=== PATIENT | female | born 1985 | race Caucasian/White ===

== ENCOUNTER → 2024-07-23 13:49 | Outpatient (REF) | payer OTHER, SELFPAY | LOC: HWRAD 13:49 | PROVIDERS: ATTENDING PHYSICIAN Nurse Practitioner Family | DX: R10.2 Pelvic and perineal pain (principal); N93.9 Abnormal uterine and vaginal bleeding, unspecified | CPT/HCPCS: 76830; 76856 ==

== ENCOUNTER 2024-07-27 20:38 | Emergency (ER) | payer OTHER, SELFPAY ==
[2024-07-27 20:40] VITALS: BP 115/78
[2024-07-27 21:05] LABS: COVID-19 Antigen Negative (Negative)
--- NOTE | 2024-07-27 21:57 | ED.GENMED ---
History of Present Illness
General
Chief Complaint: Cold/Flu/URI Symptoms
Source: patient
Time Seen by Provider: 07/27/24 21:21
History of Present Illness
History of Present Illness:
39yoF with no significant past medical history presenting with her mother for evaluation of flu-like symptoms x 3 days. Symptoms include fevers, body aches, headaches, dry cough, and fatigue. Tmax 103. Patient's son was recently sick with
adenovirus. She has been taking Tylenol and ibuprofen for her symptoms. She denies any vomiting, diarrhea, abdominal pain, dysuria, rashes. No recent travel.
Past History
Past History
ED Past Medical History: None
ED Past Surgical History:
Social History
Tobacco: Non-smoker
Personal:
Phy Exam
General Physical Exam
General Presentation: well appearing and no apparent distress
General age: appears stated age
General Skin: warm and dry
General Habitus: normal
General Mental: alert
ENT Exam
ENT Exam: TM's normal, pharynx normal, neck supple and normocephalic
Additional ENT: No meningismus
Cardiovascular Exam
Cardiovascular Exam: regular rate/rhythm and no murmur
Pulmonary Exam
Pulmonary Exam: lungs clear, no respiratory distress, no rales, no rhonchi and no wheezing
Gastrointestinal Exam
Gastrointestinal Exam: non tender, soft and non distended
Galileo Coma Scale
Eye Opening: Spontaneous
Verbal Response: Oriented
Motor Response: Obeys Commands
GCS Total Score: 15
Skin Exam
Skin Exam: normal color and warm/dry
Psychiatric Exam
Psychiatric Exam: normal mood/affect
Course
Orders/Labs/Results
Orders:
Orders
07/27/24 20:45
COVID-19 Antigen Urgent
Source: Nasal Swab
Influenza A+B Rapid Molecular Urgent
CARMELLA Source: Nasal Swab
Specimen Description:
Vital Signs
Initial and Last Documented VS:
Initial Vital Signs
Temp Pulse Resp BP Pulse Ox
99.0 F 83 18 115/78 98
07/27/24 20:40 07/27/24 20:40 07/27/24 20:40 07/27/24 20:40 07/27/24 20:40
Last Documented Vital Signs
Temp Pulse Resp BP Pulse Ox
98.9 F 75 18 116/73 99
07/27/24 23:07 07/27/24 23:07 07/27/24 23:07 07/27/24 23:07 07/27/24 23:07
MDM/Problems Addressed
Differential Diagnosis Includes:
39yoF who is otherwise healthy here with flu-like symptoms x 3 days. C/o fevers, body aches, cough, OCONNOR. Tmax 103. Temp 99 on arrival. Remainder of vitals are stable. She is well appearing in no distress. Exam is reassuring without any focal signs of
infection. Differential diagnosis includes but is not limited to: URI, COVID, influenza, doubt pneumonia, no clinical signs of meningitis
COVID/flu swabs obtained which are negative for acute findings. No indication for further workup. Presentation consistent with a viral illness. Supportive care discussed. Advised f/u with PCP and ED return precautions discussed. She expressed
understanding and is agreeable to plan. She was discharged in stable condition.
*Critical Care Note
Total Time (30-74mins, 75-104mins- exclusive of procedures): Not Applicable
ED Attending Note
-
Portions of this chart may have been created with voice recognition software.� Occasional wrong word or��sound alike� substitutions may have occurred due to the inherent limitations of voice recognition software.
Discharge Plan
Departure
Patient Disposition: Home (Routine Discharge)
Date of Disposition: 07/27/24
Time of Disposition: 21:57
Patient with high blood pressure during this ER visit?: No
Discharge Problem:
Viral illness
Instructions: Fever, Adult (DC), Viral Syndrome (DC)
Prescriptions:
No Action
PNV cmb#95-ferrous fumarate-FA [] 1 EACH tablet
1 ea PO DAILY
sennosides-docusate sodium 1 TABLET tablet
1 tab PO DAILYPRN PRN (Reason: constipation) 0RF
oxycodone-acetaminophen 5 MG/325 MG tablet
1 tab PO Q4HPRN PRN (Reason: moderate pain) Qty: 10 0RF
ferrous sulfate [FeroSul] 325 MG tablet
325 mg PO BID 0RF
ibuprofen 600 MG tablet
600 mg PO Q4HPRN PRN (Reason: cramps) Qty: 90 0RF
Activity Restrictions/Additional Instructions:
Drink plenty of fluids and rest. Take Tylenol 650mg and ibuprofen 600mg every 6 hours as needed for pain.
Please call on Monday to schedule a follow-up appointment with a primary care provider.
Return to the ER with any new or worsening symptoms.
Interventions
Interventions:
*Risk Screen - Suicide Last Done: 07/27/24 20:40
*General Assessment Last Done: 07/27/24 20:40
*Neglect/Abuse Screening Last Done: 07/27/24 20:40
ED- Fall Risk Assessment Last Done: 07/27/24 23:07
*ED COVID-19 Vaccine History Last Done: 07/27/24 20:40
*Nursing Disposition Last Done: 07/27/24 23:10
ED- Pulmonary Assessment Last Done: 07/27/24 23:07
Discharge Date and Time
Discharge Date/Time: 07/27/24 23:10
Print Language: GREEK
[2024-07-27 23:07] VITALS: BP 116/73
== END 2024-07-27 23:10 | disposition home or self-care (01) ==
LOC: EMR 20:38
PROVIDERS: Student in an Organized Health Care Education/Training Program; EMERGENCY PHYSICIAN Emergency Medicine
DX: B34.9 Viral infection, unspecified (principal)
CPT/HCPCS: 99283; 87502; 87811

== ENCOUNTER → 2024-07-31 14:42 | Outpatient (REF) | payer OTHER, SELFPAY | LOC: HWRAD 14:42 | PROVIDERS: ATTENDING PHYSICIAN Family Medicine | DX: R05.1 Acute cough (principal) | CPT/HCPCS: 71046 ==

== ENCOUNTER 2024-08-03 13:46 | Emergency (ER) | payer OTHER, SELFPAY ==
[2024-08-03 13:46] VITALS: BMI 26.1
[2024-08-03 13:55] VITALS: BP 145/82
[2024-08-03 17:04] VITALS: BP 121/86
--- NOTE | 2024-08-03 17:19 | ED.GENMED ---
History of Present Illness
General
Chief Complaint: Cold/Flu/URI Symptoms
Source: patient and family (Mother is present at the bedside)
Exam Limitations: none
Time Seen by Provider: 08/03/24 15:34
History of Present Illness
History of Present Illness:
This a 39-year-old female that presents with 'high' fevers, body aches, congestion, tachycardia, nausea without vomiting and sinus pressure that have been present for the last 10 days. Patient was seen in the emergency department 1 week ago. She
was evaluated and diagnosed with a viral syndrome. Patient's symptoms did not subside so she went to her family doctor on Monday. They did basic blood work and a flu and COVID test. They did prescribe Augmentin for her symptoms. Patient states
that she did have some nausea but no vomiting. She has been able to tolerate liquids and reports that she has no urinary symptoms and has had normal bowel movements. She does report that she has not been eating or drinking normally and lost some
weight. She has been taking Tylenol and Motrin as directed for symptom control in addition to the Augmentin. Patient reports that she went back to her family doctor yesterday and was given more lab tests including a viral panel. Patient states
that she is here today because her symptoms are not improving. She states that she just started her menstrual cycle and states that it is normal. She reports no current sick contacts though her 6-year-old son was diagnosed with
adenovirus/rhinovirus 1 week ago. 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 She reports that due to her symptoms she has not been drinking coffee. Reports no other symptoms.
Past History
Past History
ED Past Medical History: None
ED Past Surgical History:
Social History
Tobacco: Non-smoker
Personal:
Review of Systems
Review of Systems
Allergies reviewed?: Yes
Other source history: family
All Other Systems: ROS reviewed and negative except as documented in HPI and ROS
Constitutional: Reports fever, weight loss (Minor weight loss over the last 10 days), fatigue, sleep disturbance and chills
EENT: Reports other (Left ear pain); Denies sore throat or mouth pain
Respiratory: Reports no symptoms; Denies cough or trouble breathing
Cardiac: Reports chest pain (Patient states that she had 1 day of chest pain last week but that has resolved) and palpitations; Denies diaphoresis or syncope
ABD/GI: Reports nausea, vomiting and anorexia; Denies abdominal pain, diarrhea, constipated, bloody stools or black stools
: Reports no symptoms
Musculoskeletal: Reports no symptoms
Skin: Reports no symptoms
Neurological: Reports no symptoms
Endocrine: Reports no symptoms
Hematologic/Lymphatic: Reports no symptoms
Psychiatric: Reports no symptoms
Phy Exam
General Physical Exam
General Presentation: well appearing and mild distress
General age: appears stated age
General Skin: warm
General Habitus: normal
General Mental: alert
General Hydration: appears well hydrated
ENT Exam
ENT Exam: EOMI, neck supple, pharyngeal erythema (Mild cobblestoning. No tonsillar exudate or crypts noted. Uvula is midline and normal-sized dentition is intact) and TM's abnormal (Left tympanic membrane is slightly erythematous but external
canal on the left is bright red. Right side is completely normal with tympanic membrane being pearly and no erythema noted)
Gastrointestinal Exam
Gastrointestinal Exam: normal bowel sounds, non tender, soft, no organomegaly, no pulsatile mass, non distended and no cva tenderness
Neurological Exam
Neurological Exam: alert
Course
Orders/Labs/Results
Orders:
Orders
08/03/24 17:17
0.9% Sodium Chloride 1000 ml [Nss] 1,000 ml IV BOLUS
Acetaminophen [Tylenol] 1,000 mg PO NOW STA
08/03/24 17:18
Test Result ONCE
08/03/24 17:21
Electrocardiogram (*1) Urgent
Reason for Study: QTc Monitoring
EKG- Treatment ONCE
08/03/24 17:36
COVID-19 Antigen Urgent
Source: Nasal Swab
CRP [C-Reactive Protein] Urgent
Complete Blood Count/With Diff Urgent
Comprehensive Metabolic Panel Urgent
HCG, Serum Qualitative Screen Urgent
Lyme Progressive Urgent
Monotest Urgent
Sed Rate [Erythrocyte Sed Rate] Urgent
Troponin I Urgent
Urinalysis Reflex To Culture Urgent
Date Specimen was Collected: 08/03/24
Time Specimen was Collected: 17:22
Influenza A+B Rapid Molecular Urgent
CARMELLA Source: Nasal Swab
Specimen Description:
Abnormal Lab Results
08/03/24
17:36
Absolute Lymphs (auto) 0.9 L 10^3/uL
(1.2-3.4)
Neutrophils % 77.1 H %
(42.2-75.2)
Lymphocytes % 15.7 L %
(20.5-51.1)
ESR 66 H mm/hour
(0-20)
Chloride 95 L mmol/L
(98-107)
Glucose 110 H mg/dl
(70-99)
C-Reactive Protein 31.80 H mg/L
(0.0-10.00)
Monoscreen Positive A
(Negative)
08/03/24 17:36
08/03/24 17:36
Vital Signs
Initial and Last Documented VS:
Initial Vital Signs
Temp Pulse Resp BP Pulse Ox
100.1 F 129 16 145/82 98
08/03/24 13:55 08/03/24 13:55 08/03/24 13:55 08/03/24 13:55 08/03/24 13:55
Last Documented Vital Signs
Temp Pulse Resp BP Pulse Ox
98.8 F 100 20 121/86 96
08/03/24 19:58 08/03/24 19:15 08/03/24 19:15 08/03/24 17:04 08/03/24 19:15
*Critical Care Note
Total Time (30-74mins, 75-104mins- exclusive of procedures): Not Applicable
ED Attending Note
-
Portions of this chart may have been created with voice recognition software.� Occasional wrong word or��sound alike� substitutions may have occurred due to the inherent limitations of voice recognition software.
Discharge Plan
Departure
Patient Disposition: Home (Routine Discharge)
Date of Disposition: 08/03/24
Time of Disposition: 19:16
Patient with high blood pressure during this ER visit?: Yes
Condition: Good
Discharge Problem:
Viral syndrome, Mononucleosis
Instructions: Fever, Adult (DC), Viral Syndrome (DC), Mononucleosis
Prescriptions:
No Action
PNV cmb#95-ferrous fumarate-FA [] 1 EACH tablet
1 ea PO DAILY
sennosides-docusate sodium 1 TABLET tablet
1 tab PO DAILYPRN PRN (Reason: constipation) 0RF
oxycodone-acetaminophen 5 MG/325 MG tablet
1 tab PO Q4HPRN PRN (Reason: moderate pain) Qty: 10 0RF
ferrous sulfate [FeroSul] 325 MG tablet
325 mg PO BID 0RF
ibuprofen 600 MG tablet
600 mg PO Q4HPRN PRN (Reason: cramps) Qty: 90 0RF
Referrals:
Lia Bourgeois MD [Family Provider] -
Activity Restrictions/Additional Instructions:
It was a pleasure meeting you and taking part in your care. We hope for your continued healing and wellness.
Please read discharge instructions in their entirety. However, they are for general education and may not describe your exact diagnosis at discharge. Information on your ER visit and medical conditions were discussed with you along with appropriate
follow up information...
If indicated, please take your medications as instructed and indicated on discharge paperwork.
Please schedule a follow up appointment as directed. Call to schedule an appointment
Please return to the emergency department with ANY change in, persisting, or worsening of symptoms. If any of your symptoms do not improve, or persist, or become more severe within 6-12 hours, please return to the emergency department for further
care.
Please return to the emergency department if you develop a headache, neck pain/stiffness, fever greater than 100.4F, chest pain, shortness of breath, persistent nausea, vomiting, slurred speech, difficulty walking, numbness/tingling, weakness, signs
of infection or any other symptoms that are worrisome to you.
If you have any questions or concerns please do not hesitate to call the Hospital at or E-mail me directly at [email or web address]
Interventions
Interventions:
*Risk Screen - Suicide Last Done: 08/03/24 13:55
*General Assessment Last Done: 08/03/24 13:55
*Neglect/Abuse Screening Last Done: 08/03/24 13:55
ED- Fall Risk Assessment Last Done: 08/03/24 17:09
*ED COVID-19 Vaccine History Last Done: 08/03/24 19:58
*Nursing Disposition Last Done: 08/03/24 19:58
ED- Pulmonary Assessment Last Done: 08/03/24 17:09
Discharge Date and Time
Discharge Date/Time: 08/03/24 20:00
Print Language: MALAY
[2024-08-03] MEDS: TYLENOL 1000 MG PO (17:20)
[2024-08-03] MEDS: NSS 1000 IV (17:26)
[2024-08-03 17:48] LABS: % Basophils 0.2 % (0-2); % Eosinophils 0.2 % (0-6); % Immature Granulocytes 0.3 % (0-0.5); % Lymphocytes 15.7 % (20.5-51.1); % Monocytes 6.5 % (1.7-9.3); % Neutrophils 77.1 % (42.2-75.2); Absolute Lymphocytes 0.9 10^3/uL (1.2-3.4); Absolute Monocytes 0.4 10^3/uL (0.1-0.6); Absolute Neutrophils 4.6 10^3/uL (1.4-6.5); Hematocrit 37.1 % (37.0-47.0); Hemoglobin 12.9 g/dL (12.0-16.0); Mean Corp Hgb Conc. 34.8 g/dL (33.0-37.0); Mean Corpuscular Hgb 30.7 pg (27.0-31.0); Mean Corpuscular Volume 88.3 fL (81.0-99.0); Mean Platelet Volume 10.1 fL (7.4-10.4); Nucleated Red Blood Cells % 0 %; Platelet Count 289 10^3/uL (130-400); Red Cell Dist. Width 12.5 % (11.5-14.5)
[2024-08-03 18:00] LABS: HCG, Serum Qualitative Screen Negative; Monotest Positive (Negative)
[2024-08-03 18:04] LABS: ALT (SGPT) 32 U/L (0-35); AST (SGOT) 27 U/L (14-36); Albumin 4.5 g/dl (3.5-5.0); Alkaline Phosphatase 106 U/L (38-126); Blood Urea Nitrogen 10 mg/dl (7-17); Calcium 9.6 mg/dl (8.4-10.2); Carbon Dioxide 24 mmol/L (22-30); Chloride 95 mmol/L (98-107); Estimated Creatinine Clearance 93 ml/min; Glucose 110 mg/dl (70-99); Potassium 4.2 mmol/L (3.5-5.1); Sodium 136 mmol/L (135-145); Total Bilirubin 0.3 mg/dl (0.2-1.3); Total Protein 7.7 g/dl (6.3-8.2); eGFR > 60.00
[2024-08-03 18:07] LABS: Urine Albumin Negative (Neg - Trace); Urine Bilirubin Negative (Negative); Urine Character Clear (Clear); Urine Color Yellow; Urine Glucose Negative (Negative); Urine Ketone Negative (Negative); Urine Leukocyte Negative (Negative); Urine Nitrite Negative (Negative); Urine Occult Blood Negative (Negative); Urine Specific Gravity 1.005 (<1.030); Urine Urobilinogen Negative (Neg - 1+)
[2024-08-03 18:14] LABS: Troponin I < 0.012 ng/ml
[2024-08-03 18:16] LABS: COVID-19 Antigen Negative (Negative)
[2024-08-03 18:31] LABS: Erythrocyte Sed Rate 66 mm/hour (0-20)
[2024-08-05 11:32] LABS: Lyme Antibody Screen, EIA Negative (Negative)
== END 2024-08-03 20:00 | disposition home or self-care (01) ==
LOC: EMR 13:46
PROVIDERS: EMERGENCY PHYSICIAN Student in an Organized Health Care Education/Training Program; FAMILY PHYSICIAN Family Medicine
DX: B27.90 Infectious mononucleosis, unspecified without complication (principal)
CPT/HCPCS: 96360; 99284; 80053; 81003; 84484; 84703; 85025; 85652; 86140; 86308; 86618; 87502; 87811; 93005

== ENCOUNTER 2024-10-22 06:20 | Day surgery (SDC) | payer OTHER, SELFPAY ==
[2024-10-07 09:18] LABS: HCG, Serum Qualitative Screen Negative
[2024-10-07 09:21] LABS: % Basophils 0.4 % (0-2); % Eosinophils 1.6 % (0-6); % Immature Granulocytes 0.1 % (0-0.5); % Lymphocytes 27.3 % (20.5-51.1); % Monocytes 8.2 % (1.7-9.3); % Neutrophils 62.4 % (42.2-75.2); Absolute Eosinophils 0.1 10^3/uL (0-0.7); Absolute Lymphocytes 1.9 10^3/uL (1.2-3.4); Absolute Monocytes 0.6 10^3/uL (0.1-0.6); Absolute Neutrophils 4.3 10^3/uL (1.4-6.5); Hemoglobin 12.6 g/dL (12.0-16.0); Mean Corp Hgb Conc. 33.2 g/dL (33.0-37.0); Mean Corpuscular Hgb 30.9 pg (27.0-31.0); Mean Corpuscular Volume 93.1 fL (81.0-99.0); Mean Platelet Volume 10.3 fL (7.4-10.4); Nucleated Red Blood Cells % 0 %; Platelet Count 260 10^3/uL (130-400); Red Blood Cell Count 4.08 10^6/uL (4.20-5.40); Red Cell Dist. Width 12.7 % (11.5-14.5)
[2024-10-07 09:29] LABS: Blood Urea Nitrogen 13 mg/dl (7-17); Calcium 9.3 mg/dl (8.4-10.2); Carbon Dioxide 24 mmol/L (22-30); Chloride 100 mmol/L (98-107); Glucose 86 mg/dl (70-99); Potassium 4.6 mmol/L (3.5-5.1); Sodium 135 mmol/L (135-145); eGFR > 60.00
[2024-10-07 13:03] VITALS: BMI 27.0
[2024-10-22] VITALS (9 sets, daily range): BP systolic 102–116; BP diastolic 62–76; BMI 27.0
[2024-10-22] MEDS: TYLENOL 1000 MG PO (06:27)
[2024-10-22] MEDS: NEURONTIN 100 MG PO (06:27)
[2024-10-22] MEDS: NORMOSOL-R/PLASMALYTE-A 1000 IV (06:35)
== END 2024-10-22 10:05 | disposition home or self-care (01) ==
LOC: SDS 06:20
PROVIDERS: ATTENDING PHYSICIAN Obstetrics & Gynecology; FAMILY PHYSICIAN Family Medicine
DX: N93.9 Abnormal uterine and vaginal bleeding, unspecified (principal); R10.2 Pelvic and perineal pain; R93.89 Abnormal findings on diagnostic imaging of other specified body structures
CPT/HCPCS: 58558; 88305; 36415; 80048; 84703; 85025